=== PATIENT | male | born 1980 | race Caucasian/White ===

== ENCOUNTER → 2021-05-18 | Outpatient (CLI) | payer OTHER ==
--- NOTE | 2021-05-18 21:43 | XR ---
EXAMINATION TYPE: XR chest 2V DATE OF EXAM: 05/18/2021 COMPARISON: NONE HISTORY: 41-year-old male, cough and pain under the scapula for 3 days TECHNIQUE: Frontal and lateral views of the chest are obtained. FINDINGS: Unremarkable lungs. No pleural effusion or pneumothorax. No cardiomegaly. No gross aggressive bone le iona. IMPRESSION: No significant abnormality identified.
== END | disposition home or self-care (01) ==
LOC: RADXRYALE 13:01
PROVIDERS: ATTEND Internal Medicine
DX: R05.9 Cough, unspecified (principal)
CPT/HCPCS: 71046